=== PATIENT | female | born 1960 | race Caucasian/White ===

== ENCOUNTER → 2020-05-16 | Outpatient (CLI) | payer BC | LOC: HYPER 10:12 | PROVIDERS: ATTEND Emergency Medicine | DX: S81.812A Laceration without foreign body, left lower leg, initial encounter (principal); L97.822 Non-pressure chronic ulcer of other part of left lower leg with fat layer exposed; R60.0 Localized edema; E66.01 Morbid (severe) obesity due to excess calories; E78.5 Hyperlipidemia, unspecified; G89.29 Other chronic pain; R53.82 Chronic fatigue, unspecified; M05.79 Rheumatoid arthritis with rheumatoid factor of multiple sites without organ or systems involvement; M48.062 Spinal stenosis, lumbar region with neurogenic claudication; M81.0 Age-related osteoporosis without current pathological fracture; Z90.710 Acquired absence of both cervix and uterus; Z68.38 Body mass index [BMI] 38.0-38.9, adult; W54.0XXA Bitten by dog, initial encounter; Y93.89 Activity, other specified; Y92.89 Other specified places as the place of occurrence of the external cause; Y99.8 Other external cause status ==

== ENCOUNTER → 2020-05-23 | Outpatient (CLI) | payer BC | LOC: HYPER 08:52 | PROVIDERS: ATTEND Emergency Medicine | DX: S81.812D Laceration without foreign body, left lower leg, subsequent encounter (principal); L97.822 Non-pressure chronic ulcer of other part of left lower leg with fat layer exposed; R60.0 Localized edema; E66.01 Morbid (severe) obesity due to excess calories; E78.5 Hyperlipidemia, unspecified; G89.29 Other chronic pain; R53.82 Chronic fatigue, unspecified; M05.79 Rheumatoid arthritis with rheumatoid factor of multiple sites without organ or systems involvement; M48.062 Spinal stenosis, lumbar region with neurogenic claudication; M81.0 Age-related osteoporosis without current pathological fracture; Z90.710 Acquired absence of both cervix and uterus; Z68.38 Body mass index [BMI] 38.0-38.9, adult; W54.0XXD Bitten by dog, subsequent encounter ==

== ENCOUNTER → 2020-05-31 | Outpatient (CLI) | payer BC | LOC: HYPER 10:34 | PROVIDERS: ATTEND Emergency Medicine Emergency Medical Services | DX: L97.822 Non-pressure chronic ulcer of other part of left lower leg with fat layer exposed (principal); S81.812D Laceration without foreign body, left lower leg, subsequent encounter; M05.79 Rheumatoid arthritis with rheumatoid factor of multiple sites without organ or systems involvement; M48.062 Spinal stenosis, lumbar region with neurogenic claudication; R53.82 Chronic fatigue, unspecified; G89.29 Other chronic pain; R60.0 Localized edema; E78.5 Hyperlipidemia, unspecified; M81.0 Age-related osteoporosis without current pathological fracture; W54.8XXD Other contact with dog, subsequent encounter ==

== ENCOUNTER → 2020-06-21 | Outpatient (CLI) | payer BC | LOC: HYPER 09:52 | PROVIDERS: ATTEND Emergency Medicine | DX: L97.822 Non-pressure chronic ulcer of other part of left lower leg with fat layer exposed (principal); S81.812D Laceration without foreign body, left lower leg, subsequent encounter; E66.01 Morbid (severe) obesity due to excess calories; E78.5 Hyperlipidemia, unspecified; G89.29 Other chronic pain; R53.82 Chronic fatigue, unspecified; R60.0 Localized edema; M05.79 Rheumatoid arthritis with rheumatoid factor of multiple sites without organ or systems involvement; M48.062 Spinal stenosis, lumbar region with neurogenic claudication; M81.0 Age-related osteoporosis without current pathological fracture; Z68.38 Body mass index [BMI] 38.0-38.9, adult; W54.8XXD Other contact with dog, subsequent encounter ==

== ENCOUNTER → 2020-07-05 | Outpatient (CLI) | payer BC | LOC: HYPER 08:42 | PROVIDERS: ATTEND Emergency Medicine Emergency Medical Services | DX: L97.822 Non-pressure chronic ulcer of other part of left lower leg with fat layer exposed (principal); S81.812D Laceration without foreign body, left lower leg, subsequent encounter; M05.79 Rheumatoid arthritis with rheumatoid factor of multiple sites without organ or systems involvement; M48.062 Spinal stenosis, lumbar region with neurogenic claudication; R53.82 Chronic fatigue, unspecified; G89.29 Other chronic pain; R60.0 Localized edema; E78.5 Hyperlipidemia, unspecified; M81.0 Age-related osteoporosis without current pathological fracture; X58.XXXD Exposure to other specified factors, subsequent encounter ==

== ENCOUNTER → 2020-07-26 | Outpatient (CLI) | payer OTHER | LOC: HYPER 08:16 | PROVIDERS: ATTEND Emergency Medicine Emergency Medical Services | DX: L97.822 Non-pressure chronic ulcer of other part of left lower leg with fat layer exposed (principal); S81.812D Laceration without foreign body, left lower leg, subsequent encounter; M05.79 Rheumatoid arthritis with rheumatoid factor of multiple sites without organ or systems involvement; M48.062 Spinal stenosis, lumbar region with neurogenic claudication; R53.82 Chronic fatigue, unspecified; G89.29 Other chronic pain; R60.0 Localized edema; E66.9 Obesity, unspecified; Z68.38 Body mass index [BMI] 38.0-38.9, adult; E78.5 Hyperlipidemia, unspecified; M81.0 Age-related osteoporosis without current pathological fracture; W54.8XXD Other contact with dog, subsequent encounter ==

== ENCOUNTER → 2020-08-16 | Outpatient (CLI) | payer OTHER | LOC: HYPER 08:13 | PROVIDERS: ATTEND Emergency Medicine | DX: L97.822 Non-pressure chronic ulcer of other part of left lower leg with fat layer exposed (principal); S81.812D Laceration without foreign body, left lower leg, subsequent encounter; M05.79 Rheumatoid arthritis with rheumatoid factor of multiple sites without organ or systems involvement; M48.062 Spinal stenosis, lumbar region with neurogenic claudication; R53.82 Chronic fatigue, unspecified; G89.29 Other chronic pain; R60.0 Localized edema; M81.0 Age-related osteoporosis without current pathological fracture; E66.9 Obesity, unspecified; Z68.38 Body mass index [BMI] 38.0-38.9, adult; W54.8XXD Other contact with dog, subsequent encounter ==

== ENCOUNTER → 2020-08-23 | Outpatient (CLI) | payer OTHER | LOC: HYPER 08:29 | PROVIDERS: ATTEND Emergency Medicine | DX: T81.89XA Other complications of procedures, not elsewhere classified, initial encounter (principal); L97.822 Non-pressure chronic ulcer of other part of left lower leg with fat layer exposed; S81.812D Laceration without foreign body, left lower leg, subsequent encounter; R53.82 Chronic fatigue, unspecified; G89.29 Other chronic pain; R60.0 Localized edema; E78.5 Hyperlipidemia, unspecified; E66.01 Morbid (severe) obesity due to excess calories; M05.79 Rheumatoid arthritis with rheumatoid factor of multiple sites without organ or systems involvement; M48.062 Spinal stenosis, lumbar region with neurogenic claudication; M81.0 Age-related osteoporosis without current pathological fracture; Z68.38 Body mass index [BMI] 38.0-38.9, adult; W54.8XXD Other contact with dog, subsequent encounter; Y92.238 Other place in hospital as the place of occurrence of the external cause; Y83.8 Other surgical procedures as the cause of abnormal reaction of the patient, or of later complication, without mention of misadventure at the time of the procedure ==

== ENCOUNTER → 2020-08-29 | Outpatient (CLI) | payer OTHER | LOC: HYPER 11:09 | PROVIDERS: ATTEND Emergency Medicine | DX: L97.822 Non-pressure chronic ulcer of other part of left lower leg with fat layer exposed (principal); S81.812D Laceration without foreign body, left lower leg, subsequent encounter; R53.82 Chronic fatigue, unspecified; G89.29 Other chronic pain; R60.0 Localized edema; E78.5 Hyperlipidemia, unspecified; E66.01 Morbid (severe) obesity due to excess calories; M05.79 Rheumatoid arthritis with rheumatoid factor of multiple sites without organ or systems involvement; M48.062 Spinal stenosis, lumbar region with neurogenic claudication; M81.0 Age-related osteoporosis without current pathological fracture; Z68.38 Body mass index [BMI] 38.0-38.9, adult; W54.8XXD Other contact with dog, subsequent encounter ==

== ENCOUNTER → 2020-09-13 | Outpatient (CLI) | payer OTHER | LOC: HYPER 08:31 | PROVIDERS: ATTEND Emergency Medicine Emergency Medical Services | DX: L97.822 Non-pressure chronic ulcer of other part of left lower leg with fat layer exposed (principal); L84 Corns and callosities; S81.812D Laceration without foreign body, left lower leg, subsequent encounter; R53.82 Chronic fatigue, unspecified; G89.29 Other chronic pain; R60.0 Localized edema; E78.5 Hyperlipidemia, unspecified; E66.01 Morbid (severe) obesity due to excess calories; M05.79 Rheumatoid arthritis with rheumatoid factor of multiple sites without organ or systems involvement; M48.062 Spinal stenosis, lumbar region with neurogenic claudication; M81.0 Age-related osteoporosis without current pathological fracture; Z68.38 Body mass index [BMI] 38.0-38.9, adult; W54.8XXD Other contact with dog, subsequent encounter ==

== ENCOUNTER → 2020-10-10 | Outpatient (CLI) | payer OTHER | LOC: HYPER 12:44 | PROVIDERS: ATTEND Emergency Medicine Emergency Medical Services | DX: T81.32XD Disruption of internal operation (surgical) wound, not elsewhere classified, subsequent encounter (principal); L97.822 Non-pressure chronic ulcer of other part of left lower leg with fat layer exposed; S81.812D Laceration without foreign body, left lower leg, subsequent encounter; L84 Corns and callosities; R53.82 Chronic fatigue, unspecified; G89.29 Other chronic pain; R60.0 Localized edema; E78.5 Hyperlipidemia, unspecified; E66.01 Morbid (severe) obesity due to excess calories; M05.79 Rheumatoid arthritis with rheumatoid factor of multiple sites without organ or systems involvement; M48.062 Spinal stenosis, lumbar region with neurogenic claudication; M81.0 Age-related osteoporosis without current pathological fracture; Z68.38 Body mass index [BMI] 38.0-38.9, adult; W54.8XXD Other contact with dog, subsequent encounter; Y83.8 Other surgical procedures as the cause of abnormal reaction of the patient, or of later complication, without mention of misadventure at the time of the procedure ==

== ENCOUNTER → 2020-10-16 | Outpatient (CLI) | payer OTHER | LOC: HYPER 13:52 | PROVIDERS: ATTEND Emergency Medicine | DX: T81.32XD Disruption of internal operation (surgical) wound, not elsewhere classified, subsequent encounter (principal); L97.822 Non-pressure chronic ulcer of other part of left lower leg with fat layer exposed; S81.812D Laceration without foreign body, left lower leg, subsequent encounter; L02.212 Cutaneous abscess of back [any part, except buttock and flank]; L84 Corns and callosities; R53.82 Chronic fatigue, unspecified; G89.29 Other chronic pain; R60.0 Localized edema; E78.5 Hyperlipidemia, unspecified; E66.01 Morbid (severe) obesity due to excess calories; M05.79 Rheumatoid arthritis with rheumatoid factor of multiple sites without organ or systems involvement; M48.062 Spinal stenosis, lumbar region with neurogenic claudication; M81.0 Age-related osteoporosis without current pathological fracture; Z68.38 Body mass index [BMI] 38.0-38.9, adult; W54.8XXD Other contact with dog, subsequent encounter; Y83.8 Other surgical procedures as the cause of abnormal reaction of the patient, or of later complication, without mention of misadventure at the time of the procedure ==

== ENCOUNTER → 2020-10-23 | Outpatient (CLI) | payer OTHER | LOC: HYPER 13:17 | PROVIDERS: ATTEND Emergency Medicine | DX: T81.32XD Disruption of internal operation (surgical) wound, not elsewhere classified, subsequent encounter (principal); L97.822 Non-pressure chronic ulcer of other part of left lower leg with fat layer exposed; L02.212 Cutaneous abscess of back [any part, except buttock and flank]; L84 Corns and callosities; R53.82 Chronic fatigue, unspecified; G89.29 Other chronic pain; R60.0 Localized edema; E78.5 Hyperlipidemia, unspecified; E66.01 Morbid (severe) obesity due to excess calories; M05.79 Rheumatoid arthritis with rheumatoid factor of multiple sites without organ or systems involvement; M48.062 Spinal stenosis, lumbar region with neurogenic claudication; M81.0 Age-related osteoporosis without current pathological fracture; Z68.38 Body mass index [BMI] 38.0-38.9, adult; Y83.8 Other surgical procedures as the cause of abnormal reaction of the patient, or of later complication, without mention of misadventure at the time of the procedure ==

== ENCOUNTER → 2020-10-29 | Outpatient (CLI) | payer OTHER | LOC: HYPER 09:45 | PROVIDERS: ATTEND Specialist | DX: T81.32XD Disruption of internal operation (surgical) wound, not elsewhere classified, subsequent encounter (principal); L97.822 Non-pressure chronic ulcer of other part of left lower leg with fat layer exposed; L02.212 Cutaneous abscess of back [any part, except buttock and flank]; L84 Corns and callosities; R53.82 Chronic fatigue, unspecified; G89.29 Other chronic pain; R60.0 Localized edema; E78.5 Hyperlipidemia, unspecified; E66.01 Morbid (severe) obesity due to excess calories; M05.79 Rheumatoid arthritis with rheumatoid factor of multiple sites without organ or systems involvement; M48.062 Spinal stenosis, lumbar region with neurogenic claudication; M81.0 Age-related osteoporosis without current pathological fracture; Z68.38 Body mass index [BMI] 38.0-38.9, adult; Y83.8 Other surgical procedures as the cause of abnormal reaction of the patient, or of later complication, without mention of misadventure at the time of the procedure ==

== ENCOUNTER → 2020-10-31 | Outpatient (CLI) | payer OTHER | LOC: HYPER 10:13 | PROVIDERS: ATTEND Emergency Medicine | DX: T81.32XD Disruption of internal operation (surgical) wound, not elsewhere classified, subsequent encounter (principal); L02.212 Cutaneous abscess of back [any part, except buttock and flank]; M48.062 Spinal stenosis, lumbar region with neurogenic claudication; M05.79 Rheumatoid arthritis with rheumatoid factor of multiple sites without organ or systems involvement; R53.82 Chronic fatigue, unspecified; G89.29 Other chronic pain; R60.0 Localized edema; E78.5 Hyperlipidemia, unspecified; M81.0 Age-related osteoporosis without current pathological fracture; E66.9 Obesity, unspecified; Z68.38 Body mass index [BMI] 38.0-38.9, adult; Z79.899 Other long term (current) drug therapy; Y83.8 Other surgical procedures as the cause of abnormal reaction of the patient, or of later complication, without mention of misadventure at the time of the procedure ==

== ENCOUNTER → 2020-11-07 | Outpatient (CLI) | payer OTHER | LOC: HYPER 07:39 | PROVIDERS: ATTEND Emergency Medicine | DX: T81.32XD Disruption of internal operation (surgical) wound, not elsewhere classified, subsequent encounter (principal); L02.212 Cutaneous abscess of back [any part, except buttock and flank]; M48.062 Spinal stenosis, lumbar region with neurogenic claudication; M05.79 Rheumatoid arthritis with rheumatoid factor of multiple sites without organ or systems involvement; R53.82 Chronic fatigue, unspecified; G89.29 Other chronic pain; R60.0 Localized edema; E78.5 Hyperlipidemia, unspecified; M81.0 Age-related osteoporosis without current pathological fracture; E66.01 Morbid (severe) obesity due to excess calories; Z68.38 Body mass index [BMI] 38.0-38.9, adult; Y83.8 Other surgical procedures as the cause of abnormal reaction of the patient, or of later complication, without mention of misadventure at the time of the procedure ==

== ENCOUNTER → 2020-11-15 | Outpatient (CLI) | payer OTHER | LOC: HYPER 08:10 | PROVIDERS: ATTEND Emergency Medicine Emergency Medical Services | DX: T81.32XD Disruption of internal operation (surgical) wound, not elsewhere classified, subsequent encounter (principal); L98.492 Non-pressure chronic ulcer of skin of other sites with fat layer exposed; L02.212 Cutaneous abscess of back [any part, except buttock and flank]; M48.062 Spinal stenosis, lumbar region with neurogenic claudication; M05.79 Rheumatoid arthritis with rheumatoid factor of multiple sites without organ or systems involvement; R53.82 Chronic fatigue, unspecified; G89.29 Other chronic pain; R60.0 Localized edema; E78.5 Hyperlipidemia, unspecified; M81.0 Age-related osteoporosis without current pathological fracture; E66.01 Morbid (severe) obesity due to excess calories; Z68.38 Body mass index [BMI] 38.0-38.9, adult; Y83.8 Other surgical procedures as the cause of abnormal reaction of the patient, or of later complication, without mention of misadventure at the time of the procedure ==

== ENCOUNTER → 2020-11-22 | Outpatient (CLI) | payer OTHER | LOC: HYPER 07:36 | PROVIDERS: ATTEND Emergency Medicine Emergency Medical Services | DX: T81.32XD Disruption of internal operation (surgical) wound, not elsewhere classified, subsequent encounter (principal); L98.492 Non-pressure chronic ulcer of skin of other sites with fat layer exposed; L02.212 Cutaneous abscess of back [any part, except buttock and flank]; M48.062 Spinal stenosis, lumbar region with neurogenic claudication; M05.79 Rheumatoid arthritis with rheumatoid factor of multiple sites without organ or systems involvement; R53.82 Chronic fatigue, unspecified; G89.29 Other chronic pain; R60.0 Localized edema; E78.5 Hyperlipidemia, unspecified; M81.0 Age-related osteoporosis without current pathological fracture; E66.01 Morbid (severe) obesity due to excess calories; Z68.38 Body mass index [BMI] 38.0-38.9, adult; Y83.8 Other surgical procedures as the cause of abnormal reaction of the patient, or of later complication, without mention of misadventure at the time of the procedure ==

== ENCOUNTER → 2020-11-28 | Outpatient (CLI) | payer OTHER | LOC: HYPER 07:34 | PROVIDERS: ATTEND Emergency Medicine | DX: T81.32XD Disruption of internal operation (surgical) wound, not elsewhere classified, subsequent encounter (principal); L98.492 Non-pressure chronic ulcer of skin of other sites with fat layer exposed; L02.212 Cutaneous abscess of back [any part, except buttock and flank]; M48.062 Spinal stenosis, lumbar region with neurogenic claudication; M05.79 Rheumatoid arthritis with rheumatoid factor of multiple sites without organ or systems involvement; R53.82 Chronic fatigue, unspecified; G89.29 Other chronic pain; R60.0 Localized edema; E78.5 Hyperlipidemia, unspecified; M81.0 Age-related osteoporosis without current pathological fracture; E66.01 Morbid (severe) obesity due to excess calories; Z68.38 Body mass index [BMI] 38.0-38.9, adult; Y83.8 Other surgical procedures as the cause of abnormal reaction of the patient, or of later complication, without mention of misadventure at the time of the procedure ==

== ENCOUNTER → 2020-12-06 | Outpatient (CLI) | payer OTHER | LOC: HYPER 07:38 | PROVIDERS: ATTEND Emergency Medicine | DX: T81.32XD Disruption of internal operation (surgical) wound, not elsewhere classified, subsequent encounter (principal); L98.492 Non-pressure chronic ulcer of skin of other sites with fat layer exposed; L02.212 Cutaneous abscess of back [any part, except buttock and flank]; M48.062 Spinal stenosis, lumbar region with neurogenic claudication; M05.79 Rheumatoid arthritis with rheumatoid factor of multiple sites without organ or systems involvement; R53.82 Chronic fatigue, unspecified; G89.29 Other chronic pain; R60.0 Localized edema; E66.9 Obesity, unspecified; Z68.38 Body mass index [BMI] 38.0-38.9, adult; Y83.8 Other surgical procedures as the cause of abnormal reaction of the patient, or of later complication, without mention of misadventure at the time of the procedure ==

== ENCOUNTER → 2020-12-20 | Outpatient (CLI) | payer OTHER | LOC: HYPER 07:45 | PROVIDERS: ATTEND Emergency Medicine | DX: T81.32XD Disruption of internal operation (surgical) wound, not elsewhere classified, subsequent encounter (principal); L98.492 Non-pressure chronic ulcer of skin of other sites with fat layer exposed; L02.212 Cutaneous abscess of back [any part, except buttock and flank]; M48.062 Spinal stenosis, lumbar region with neurogenic claudication; M05.79 Rheumatoid arthritis with rheumatoid factor of multiple sites without organ or systems involvement; R53.82 Chronic fatigue, unspecified; G89.29 Other chronic pain; R60.0 Localized edema; E78.5 Hyperlipidemia, unspecified; M81.0 Age-related osteoporosis without current pathological fracture; E66.9 Obesity, unspecified; Z68.38 Body mass index [BMI] 38.0-38.9, adult; Z79.899 Other long term (current) drug therapy; Y83.8 Other surgical procedures as the cause of abnormal reaction of the patient, or of later complication, without mention of misadventure at the time of the procedure ==

== ENCOUNTER → 2021-01-03 | Outpatient (CLI) | payer OTHER | LOC: HYPER 08:04 | PROVIDERS: ATTEND Emergency Medicine Emergency Medical Services | DX: T81.32XD Disruption of internal operation (surgical) wound, not elsewhere classified, subsequent encounter (principal); L98.492 Non-pressure chronic ulcer of skin of other sites with fat layer exposed; L02.212 Cutaneous abscess of back [any part, except buttock and flank]; M05.79 Rheumatoid arthritis with rheumatoid factor of multiple sites without organ or systems involvement; R53.82 Chronic fatigue, unspecified; M48.062 Spinal stenosis, lumbar region with neurogenic claudication; G89.29 Other chronic pain; R60.0 Localized edema; R21 Rash and other nonspecific skin eruption; E78.5 Hyperlipidemia, unspecified; M81.8 Other osteoporosis without current pathological fracture; E66.9 Obesity, unspecified; Z68.38 Body mass index [BMI] 38.0-38.9, adult; Z79.899 Other long term (current) drug therapy; Y83.8 Other surgical procedures as the cause of abnormal reaction of the patient, or of later complication, without mention of misadventure at the time of the procedure ==

== ENCOUNTER → 2021-01-24 | Outpatient (CLI) | payer OTHER | LOC: HYPER 07:50 | PROVIDERS: ATTEND Emergency Medicine | DX: T81.32XD Disruption of internal operation (surgical) wound, not elsewhere classified, subsequent encounter (principal); L98.492 Non-pressure chronic ulcer of skin of other sites with fat layer exposed; L02.212 Cutaneous abscess of back [any part, except buttock and flank]; M05.79 Rheumatoid arthritis with rheumatoid factor of multiple sites without organ or systems involvement; M48.062 Spinal stenosis, lumbar region with neurogenic claudication; G89.29 Other chronic pain; R60.0 Localized edema; R21 Rash and other nonspecific skin eruption; R53.82 Chronic fatigue, unspecified; E78.5 Hyperlipidemia, unspecified; M81.0 Age-related osteoporosis without current pathological fracture; E66.9 Obesity, unspecified; Z68.38 Body mass index [BMI] 38.0-38.9, adult; Z79.899 Other long term (current) drug therapy; Y83.8 Other surgical procedures as the cause of abnormal reaction of the patient, or of later complication, without mention of misadventure at the time of the procedure ==

== ENCOUNTER → 2021-02-14 | Outpatient (CLI) | payer OTHER | LOC: HYPER 07:34 | PROVIDERS: ATTEND Emergency Medicine Emergency Medical Services | DX: T81.32XD Disruption of internal operation (surgical) wound, not elsewhere classified, subsequent encounter (principal); L98.492 Non-pressure chronic ulcer of skin of other sites with fat layer exposed; L02.212 Cutaneous abscess of back [any part, except buttock and flank]; M48.062 Spinal stenosis, lumbar region with neurogenic claudication; M05.79 Rheumatoid arthritis with rheumatoid factor of multiple sites without organ or systems involvement; G89.29 Other chronic pain; R60.0 Localized edema; R53.82 Chronic fatigue, unspecified; E78.5 Hyperlipidemia, unspecified; M81.0 Age-related osteoporosis without current pathological fracture; E66.9 Obesity, unspecified; Z68.38 Body mass index [BMI] 38.0-38.9, adult; Z79.899 Other long term (current) drug therapy; Y83.8 Other surgical procedures as the cause of abnormal reaction of the patient, or of later complication, without mention of misadventure at the time of the procedure ==

== ENCOUNTER → 2021-02-28 | Outpatient (CLI) | payer OTHER | LOC: HYPER 07:55 | PROVIDERS: ATTEND Emergency Medicine | DX: T81.32XD Disruption of internal operation (surgical) wound, not elsewhere classified, subsequent encounter (principal); L98.492 Non-pressure chronic ulcer of skin of other sites with fat layer exposed; L02.212 Cutaneous abscess of back [any part, except buttock and flank]; M48.062 Spinal stenosis, lumbar region with neurogenic claudication; M05.79 Rheumatoid arthritis with rheumatoid factor of multiple sites without organ or systems involvement; G89.29 Other chronic pain; R60.0 Localized edema; R53.82 Chronic fatigue, unspecified; E78.5 Hyperlipidemia, unspecified; E66.01 Morbid (severe) obesity due to excess calories; M81.0 Age-related osteoporosis without current pathological fracture; Z68.38 Body mass index [BMI] 38.0-38.9, adult; Y83.8 Other surgical procedures as the cause of abnormal reaction of the patient, or of later complication, without mention of misadventure at the time of the procedure ==

== ENCOUNTER 2021-03-12 06:06 | Day surgery (SDC) | payer OTHER ==
[~2021-03-12] VITALS: Ht 152.4 cm; Wt 90.7 kg
[~2021-03-12 06:06] MED LIST: ALENDRONATE SOD70 MG PO; CEVIMELINE HCL30 MG PO; EZETIMIBE10 MG PO; FOLIC ACID1 MG PO; FUROSEMIDE 40 M40 MG PO; LEXAPRO 10 MG T10 M2 PO; METAXALONE800 MG PO; METHOCARBAMOL750 MG PO; METHOTREXATE 22.5 M1 PO; METOLAZONE 5 MG5 MG PO; MS CONTIN 30 MG30 M1 PO; OXAPROZIN600 MG PO; OXYCODONE HCL10 MG PO; SIMVASTATIN80 MG PO; VITAMIN D21250 MCG PO
[2021-03-12 06:40] VITALS: BP 121/88
[2021-03-12 07:47] LABS: CALCIUM 8.4 mg/dL (8.5-10.1); CREATININE 0.8 mg/dL (0.6-1.0); POTASSIUM 3.4 mmol/L (3.5-5.1)
[2021-03-12] MEDS ORDERED: ONDANSETRON HCL4 M2 PO (08:04)
== END 2021-03-12 09:30 | disposition home or self-care (01) ==
LOC: TBA 06:06 → OR 06:06 → TBA 06:07 → OR 09:30
PROVIDERS: Student in an Organized Health Care Education/Training Program; ATTEND Surgery
DX: T81.89XA Other complications of procedures, not elsewhere classified, initial encounter (principal); M54.5 Low back pain; G89.29 Other chronic pain; E78.5 Hyperlipidemia, unspecified; F32.9 Major depressive disorder, single episode, unspecified; M06.9 Rheumatoid arthritis, unspecified; Z98.890 Other specified postprocedural states; Z79.899 Other long term (current) drug therapy; Z20.822 Contact with and (suspected) exposure to COVID-19; Z90.710 Acquired absence of both cervix and uterus; Y83.8 Other surgical procedures as the cause of abnormal reaction of the patient, or of later complication, without mention of misadventure at the time of the procedure
CPT/HCPCS: 50010; 50101; 50386; 50403; 57119; 57120; 62110; 62900; 70005

== ENCOUNTER → 2021-03-13 | Outpatient (CLI) | payer OTHER ==
[~2021-03-13] MED LIST changes: +ONDANSETRON HCL4 M2 PO
== END ==
LOC: HYPER 07:33
PROVIDERS: ATTEND Emergency Medicine
DX: T81.32XD Disruption of internal operation (surgical) wound, not elsewhere classified, subsequent encounter (principal); L98.492 Non-pressure chronic ulcer of skin of other sites with fat layer exposed; L02.212 Cutaneous abscess of back [any part, except buttock and flank]; L84 Corns and callosities; M48.062 Spinal stenosis, lumbar region with neurogenic claudication; M05.79 Rheumatoid arthritis with rheumatoid factor of multiple sites without organ or systems involvement; G89.29 Other chronic pain; R60.0 Localized edema; R53.82 Chronic fatigue, unspecified; E78.5 Hyperlipidemia, unspecified; E66.01 Morbid (severe) obesity due to excess calories; M81.0 Age-related osteoporosis without current pathological fracture; Z68.38 Body mass index [BMI] 38.0-38.9, adult; Y83.8 Other surgical procedures as the cause of abnormal reaction of the patient, or of later complication, without mention of misadventure at the time of the procedure

== ENCOUNTER → 2021-03-28 | Outpatient (CLI) | payer OTHER | LOC: HYPER 07:45 | PROVIDERS: ATTEND Emergency Medicine | DX: T81.32XD Disruption of internal operation (surgical) wound, not elsewhere classified, subsequent encounter (principal); L98.492 Non-pressure chronic ulcer of skin of other sites with fat layer exposed; L02.212 Cutaneous abscess of back [any part, except buttock and flank]; M48.062 Spinal stenosis, lumbar region with neurogenic claudication; M05.79 Rheumatoid arthritis with rheumatoid factor of multiple sites without organ or systems involvement; R53.82 Chronic fatigue, unspecified; G89.29 Other chronic pain; R60.0 Localized edema; R21 Rash and other nonspecific skin eruption; E66.9 Obesity, unspecified; E78.5 Hyperlipidemia, unspecified; M81.0 Age-related osteoporosis without current pathological fracture; Z68.38 Body mass index [BMI] 38.0-38.9, adult; Z79.899 Other long term (current) drug therapy; Y83.8 Other surgical procedures as the cause of abnormal reaction of the patient, or of later complication, without mention of misadventure at the time of the procedure ==

== ENCOUNTER → 2021-04-24 | Outpatient (CLI) | payer OTHER | LOC: HYPER 09:24 | PROVIDERS: ATTEND Emergency Medicine | DX: T81.32XD Disruption of internal operation (surgical) wound, not elsewhere classified, subsequent encounter (principal); L98.492 Non-pressure chronic ulcer of skin of other sites with fat layer exposed; L02.212 Cutaneous abscess of back [any part, except buttock and flank]; L84 Corns and callosities; M48.062 Spinal stenosis, lumbar region with neurogenic claudication; M05.79 Rheumatoid arthritis with rheumatoid factor of multiple sites without organ or systems involvement; R53.82 Chronic fatigue, unspecified; R60.0 Localized edema; R21 Rash and other nonspecific skin eruption; G89.29 Other chronic pain; E66.01 Morbid (severe) obesity due to excess calories; E78.5 Hyperlipidemia, unspecified; M81.0 Age-related osteoporosis without current pathological fracture; Z68.38 Body mass index [BMI] 38.0-38.9, adult; Y83.8 Other surgical procedures as the cause of abnormal reaction of the patient, or of later complication, without mention of misadventure at the time of the procedure ==

== ENCOUNTER → 2021-05-21 | Outpatient (CLI) | payer OTHER | LOC: HYPER 07:48 → RAD 07:48 → HYPER 16:16 | PROVIDERS: ATTEND Emergency Medicine | DX: T81.32XD Disruption of internal operation (surgical) wound, not elsewhere classified, subsequent encounter (principal); L98.492 Non-pressure chronic ulcer of skin of other sites with fat layer exposed; L02.212 Cutaneous abscess of back [any part, except buttock and flank]; L84 Corns and callosities; M48.062 Spinal stenosis, lumbar region with neurogenic claudication; M05.79 Rheumatoid arthritis with rheumatoid factor of multiple sites without organ or systems involvement; R53.82 Chronic fatigue, unspecified; R60.0 Localized edema; R21 Rash and other nonspecific skin eruption; G89.29 Other chronic pain; E66.01 Morbid (severe) obesity due to excess calories; E78.5 Hyperlipidemia, unspecified; M81.0 Age-related osteoporosis without current pathological fracture; Z68.38 Body mass index [BMI] 38.0-38.9, adult; Y83.8 Other surgical procedures as the cause of abnormal reaction of the patient, or of later complication, without mention of misadventure at the time of the procedure ==

== ENCOUNTER → 2021-05-28 | Outpatient (CLI) | payer OTHER | LOC: HYPER 09:46 | PROVIDERS: ATTEND Emergency Medicine | DX: T81.32XD Disruption of internal operation (surgical) wound, not elsewhere classified, subsequent encounter (principal); L98.492 Non-pressure chronic ulcer of skin of other sites with fat layer exposed; L02.212 Cutaneous abscess of back [any part, except buttock and flank]; L84 Corns and callosities; R53.82 Chronic fatigue, unspecified; R60.0 Localized edema; R21 Rash and other nonspecific skin eruption; G89.29 Other chronic pain; E66.01 Morbid (severe) obesity due to excess calories; E78.5 Hyperlipidemia, unspecified; M48.062 Spinal stenosis, lumbar region with neurogenic claudication; M05.79 Rheumatoid arthritis with rheumatoid factor of multiple sites without organ or systems involvement; M81.0 Age-related osteoporosis without current pathological fracture; Z68.38 Body mass index [BMI] 38.0-38.9, adult; Y83.8 Other surgical procedures as the cause of abnormal reaction of the patient, or of later complication, without mention of misadventure at the time of the procedure ==